=== PATIENT | male | born 1980 | race Caucasian/White ===

== ENCOUNTER → 2020-07-03 12:18 | Outpatient (CLI) | payer OTHER, SELFPAY ==
--- NOTE | ~2020-07-03 | XR_ITS ---
XR foot LT min 3V DATE: 07/03/2020 12:40 INDICATION: Pain across metatarsal phalangeal joint areas today TECHNIQUE: 4 views COMPARISON: None FINDINGS: Slight plantar and posterior calcaneal enthesopathy. No fracture, dislocation, periosteal reaction or bone destruction is evident. IMPRESSION: Slight calcaneal enthesopathy Reviewed, dictated and finalized at location A.
== END ==
PROVIDERS: PCP Physician Assistant; Visit Provider Physician Assistant
DX: M77.32 Calcaneal spur, left foot (principal)
CPT/HCPCS: 73630

== ENCOUNTER → 2021-01-20 10:19 | Outpatient (CLI) | payer OTHER, SELFPAY ==
--- NOTE | ~2021-01-20 | XR_ITS ---
EXAMINATION: XR abdomen/kub 1V INDICATION: Right flank pain TECHNIQUE: Supine views of the abdomen were obtained on 2 radiographs. COMPARISON: None FINDINGS: No urolithiasis is identified. The bowel gas pattern is normal. There are no dilated loops of bowel. The visualized osseous structures are unremarkable. IMPRESSION: 1. No urolithiasis identified. Reviewed, dictated and finalized at location B.
== END ==
PROVIDERS: PCP Physician Assistant; Visit Provider Physician Assistant
DX: R10.9 Unspecified abdominal pain (principal)
CPT/HCPCS: 74018

== ENCOUNTER 2021-10-31 10:18 | Emergency (ER) | payer OTHER, SELFPAY ==
[2021-10-31 10:46] VITALS: BP 143/89; PULSE 102; RESP 20; TEMP 36.6; O2SAT 99
--- NOTE | 2021-10-31 10:47 | ED.GENADULT ---
HPI - General Adult General Chief complaint: Skin/Abscess/Foreign Body Stated complaint: Insect Bite Behind Rt Ear Time Seen by Provider: 10/31/21 10:49 Source: patient Mode of arrival: ambulatory Limitations: no limitations History of Present Illness HPI narrative: 41-year-old male patient presents to the [facility] with complaints of a rash behind right ear that he first noticed yesterday. Patient states is not very itchy but is more sensitive and has a burning feeling. Patient states he noticed some right-sided neck pain yesterday and noticed the rash last night. Patient states he did go out work in the yard Tuesday but does not remember being stung by anything that he is aware of. Denies taking any medications for the rash. Patient denies fevers, body aches or chills. Denies any inner ear pain. Related Data Allergies Allergy/AdvReac Type Severity Reaction Status Date / Time levofloxacin [From Levaquin] Allergy Redness of Verified 10/31/21 11:09 Skin Review of Systems Review of Systems: CONSTITUTIONAL: Denies fever, chills, or sweats. EYES: Denies visual changes, redness, or discharge. ENT: Denies rhinorrhea, congestion, sore throat, or otalgia. CARDIOVASCULAR: Denies chest pain, palpitations, or edema. RESPIRATORY: Denies cough or dyspnea. GASTROINTESTINAL: Denies abdominal pain, nausea, vomiting, or diarrhea. GENITOURINARY: Denies dysuria or hematuria. SKIN: Positive rash behind right ear, denies itching. MUSCULOSKELETAL: Denies back pain, joint pain, or myalgia. NEUROLOGIC: Denies headache, numbness, or weakness. PSYCHIATRIC: Denies anxiety or depression. [facility] Past Medical History Medical History (Updated 10/31/21 @ 11:12 by GISELE Garcia) Hypertension Comments At the time of my signature I agree with nursing past medical history, surgical, social, and family history. There is no relevant family history pertinent to the presenting complaint. Exam Narrative: GENERAL: Well-appearing, well-nourished, and in no acute distress. HEAD: Normocephalic, atraumatic. EYES: PERRLA and EOMI. ENT: Nares clear, no rhinorrhea or epistaxis. Mucous membranes moist. NECK: Supple. No lymphadenopathy CHEST: Clear to auscultation. No respiratory distress. HEART: Regular rate and rhythm. No murmur heard. Normal peripheral pulses. ABDOMEN: Soft, nontender, nondistended, normal active bowel sounds. EXTREMITIES: Normal range of motion. No edema. SKIN: Warm, dry, patient has a rash noted behind the right ear. The rash actually starts above the right auricle on the scalp and extends behind the right ear all the way down the lateral side of the right neck. There is some raised areas on erythemic bed there are some what appears to be blisterlike areas toward the lateral side of the neck. No obvious abscess is noted. It is more of a sensitivity with pain. Denies itching. Does not cross midline. NEURO: No focal deficits. Alert and oriented x3. Course Course Level of Care: Express Care Visit Vital Signs Vital signs: Vital Signs Temperature 36.6 C 10/31/21 10:46 Pulse Rate 102 H 10/31/21 10:46 Respiratory Rate 20 10/31/21 10:46 Blood Pressure 143/89 H 10/31/21 10:46 Pulse Oximetry 99 10/31/21 10:46 Oxygen Delivery Room Air 10/31/21 10:46 Temperature 36.6 C 10/31/21 10:46 Pulse Rate 102 H 10/31/21 10:46 Respiratory Rate 20 10/31/21 10:46 Blood Pressure 143/89 H 10/31/21 10:46 Pulse Oximetry 99 10/31/21 10:46 Oxygen Delivery Room Air 10/31/21 10:46 Vital signs reviewed The patient has been informed that they may have pre-hypertension or Hypertension based on a BP reading in the department. I recommend that the patient call the primary care provider listed on their discharge instructions or a physician of their choice this week to arrange follow up for further evaluation of possible pre-hypertension or Hypertension Medical Decision Making MDM Narrative Medical decision dominique
== END 2021-10-31 11:22 | disposition home or self-care (01) ==
PROVIDERS: Emergency Provider Nurse Practitioner Family; PCP Physician Assistant
DX: B02.9 Zoster without complications (principal); I10 Essential (primary) hypertension
CPT/HCPCS: 99213; G0463

== ENCOUNTER → 2024-09-14 08:13 | Outpatient (CLI) | payer OTHER, SELFPAY ==
--- NOTE | ~2024-09-14 | XR_ITS ---
EXAM/ PROCEDURE: XR cervical spine 4-5V - 09/14/2024 8:20 CDT HISTORY: 44 years old Male with Posterior neck pain, bilateral arm numbness/pain Posterior neck rachel n, bilateral arm numbness/pain COMPARISON: None available TECHNIQUE: Three view(s) FINDINGS/ IMPRESSION: There are no fractures or dislocations.Intervertebral disc spaces are within normal limits. Visualize d portion of lungs are clear. Reviewed, dictated and finalized at location A.
== END ==
LOC: EXPCRAD 08:17
PROVIDERS: PCP Physician Assistant; Visit Provider Physician Assistant
DX: M54.2 Cervicalgia (principal)
CPT/HCPCS: 72050